=== PATIENT | male | born 1950 ===

== ENCOUNTER 2017-01-30 08:13 | Emergency (ER) | payer MEDICARE, MEDICAID ==
[~2017-01-30 08:13] MED LIST: SODIUM CHLORIDE 0.9% FLUSH 10 ML SOL IV PRN
[2017-01-30 08:24] LABS: BASOPHILS % (AUTO) 3 % (0-3); EOSINOPHILS % (AUTO) 4 % (0-9); HEMATOCRIT 20 % (39-53); MEAN CORPUSCULAR HGB CONC 35.5 gm/dl (32.0-36.0); MEAN CORPUSCULAR VOLUME 91 fL (80-100); MONOCYTES % (AUTO) 26.6 % (0-12)
[2017-01-30] MEDS ORDERED: SODIUM CHLORIDE 0.9% 1000ML 1,000 ML IV ONE (08:25)
[2017-01-30 08:38] LABS: CALCIUM 7.2 mg/dl (8.5-10.1); POTASSIUM 4.2 mMol/L (3.5-5.1)
[2017-01-30 09:16] VITALS: TEMP 97.8
[2017-01-30 09:24] VITALS: BP 77/58; PULSE 72; RESP 22; O2SAT 91
[2017-01-30] MEDS ORDERED: SODIUM CHLORIDE 0.9% 500 ML 500 ML IV SCH (09:30)
[2017-01-30 10:12] LABS: ABO O; ANTIBODY SCREEN Negative; RH TYPE Positive
[2017-01-30 22:33] LABS: UNIT TYPE O NEGATIVE
== END 2017-01-30 08:35 | disposition short-term general hospital (02) | DRG 315 ==
LOC: ED 08:13
DX: T82.49XA Other complication of vascular dialysis catheter, initial encounter (principal); D62 Acute posthemorrhagic anemia; R58 Hemorrhage, not elsewhere classified
CPT/HCPCS: 80053; 85025; 86850; 86900; 86901; 86920; 99291

== ENCOUNTER 2017-06-08 13:15 | Emergency (ER) | payer MEDICARE, OTHER ==
[2017-06-08 13:29] VITALS: RESP 18; TEMP 98.6; O2SAT 98
[2017-06-08 14:15] LABS: BASOPHILS % (AUTO) 1 % (0-3); EOSINOPHILS % (AUTO) 8 % (0-9); HEMATOCRIT 35 % (39-53); MEAN CORPUSCULAR VOLUME 90 fL (80-100); NEUTROPHILS % (AUTO) 60.3 % (37-80)
[2017-06-08 15:52] VITALS: BP 140/77; PULSE 75
== END 2017-06-08 15:19 | DRG 605 ==
LOC: ED 13:15
DX: S00.83XA Contusion of other part of head, initial encounter (principal); I65.23 Occlusion and stenosis of bilateral carotid arteries; W05.0XXA Fall from non-moving wheelchair, initial encounter
CPT/HCPCS: 85025; 99283

== ENCOUNTER 2017-08-15 09:07 | Emergency (ER) | payer MEDICARE, OTHER ==
[2017-08-15] MEDS ORDERED: ALBUTEROL/IPRATROPIUM 1 VIAL SOL INH ONE (09:37)
[2017-08-15] MEDS ORDERED: ALBUTEROL/IPRATROPIUM 1 VIAL SOL ONE (09:40)
[2017-08-15 09:50] VITALS: TEMP 97.2
[2017-08-15 10:25] LABS: CALCIUM 9.9 mg/dl (8.5-10.1); GLOM FILT RATE 6 mL/min (>60); SODIUM 137 mMol/L (136-145)
[2017-08-15] MEDS ORDERED: NITROGLYCERIN 5 MG/ML 50 MG in DEXTROSE 250 ML 250 ML IV PRN (10:56)
[2017-08-15 11:21] LABS: HEMATOCRIT 36 % (39-53)
[2017-08-15 11:26] VITALS: BP 134/69; PULSE 72; RESP 19; O2SAT 99
[2017-08-19 07:35] LABS: MEAN CORPUSCULAR HGB CONC 31.7 gm/dl (32.0-36.0); MEAN CORPUSCULAR VOLUME 89 fL (80-100)
== END 2017-08-15 11:42 | disposition short-term general hospital (02) | DRG 291 ==
LOC: ED 09:07
DX: I50.9 Heart failure, unspecified (principal); N18.6 End stage renal disease
CPT/HCPCS: 71045; 80048; 83880; 84484; 85025; 85027; 93005; 99285; 99291; J3490

== ENCOUNTER 2018-01-24 07:43 | Emergency (ER) | payer MEDICARE, OTHER ==
[2018-01-24 07:50] VITALS: TEMP 97.1
[2018-01-24 10:04] VITALS: BP 106/66; PULSE 76; RESP 18; O2SAT 97
== END 2018-01-24 11:40 | DRG 316 ==
LOC: ED 07:43
DX: I95.9 Hypotension, unspecified (principal)
CPT/HCPCS: 99283